=== PATIENT | male | born 1970 | race Native Hawaiian/Other Pacific Islander ===

== ENCOUNTER 2017-05-27 06:05 | Emergency (ER) | payer OTHER ==
[~2017-05-27] VITALS: Ht 170.2 cm; Wt 113.4 kg
[2017-05-27 06:18] VITALS: TEMP 98.9
[2017-05-27 07:15] VITALS: BP 149/90
== END 2017-05-27 07:20 | disposition home or self-care (01) ==
LOC: ED 06:05
DX: H66.93 Otitis media, unspecified, bilateral (principal); Z87.898 Personal history of other specified conditions; R42 Dizziness and giddiness
CPT/HCPCS: 96372; 99283; J1885; J2550